=== PATIENT | male | born 1975 | race Caucasian/White ===

== ENCOUNTER 2018-01-20 03:07 | Outpatient (CLI) | payer BC, SELFPAY ==
[2018-01-20 08:36] LABS: Hemoglobin A1C 5.9 % (4.5-6.2)
[2018-01-20 09:34] LABS: Anion Gap 9.6 mmol/L (3-11); BUN 19 mg/dL (7-18); CO2 25.4 mmol/L (21.0-32.0); CREATININE 1.07 mg/dL (0.70-1.30); Calcium 9.1 mg/dL (8.5-10.1); Chloride 104 mmol/L (98-107); Cholesterol 209 mg/dL (50-200); Glucose 105 mg/dL (70-100); HDL Cholesterol 36 mg/dL (40-60); LDL CHOLESTEROL 127 mg/dL (<100); Potassium 4.5 mmol/L (3.5-5.1); Sodium 139 mmol/L (136-145); Triglyceride 324 mg/dL (30-150)
[2018-01-20 09:37] LABS: COMMENT (LAB VIEW ONLY) 213.78 mg/dL; Microalb ug/mg Crea 4.2 ug/mg Cr
== END 2018-01-20 03:08 ==
PROVIDERS: PCP Nurse Practitioner Family; Visit Provider Nurse Practitioner Family
DX: I10 Essential (primary) hypertension (principal); E78.5 Hyperlipidemia, unspecified; R73.01 Impaired fasting glucose
CPT/HCPCS: 36415; 80048; 80061; 83721; 82043; 82570; 83036

== ENCOUNTER 2019-02-15 14:11 | Outpatient (CLI) | payer BC, SELFPAY ==
[2019-02-15 14:55] LABS: Abs Immature Grans 0.04 k/cumm (0.0-0.09); Absolute Basophil Count 0.03 k/cumm (0.0-0.2); Absolute Eosinophil Count 0.24 k/cumm (0.0-0.7); Absolute Lymphocyte Count 1.73 k/cumm (1.2-3.4); Absolute Monocyte Count 0.83 k/cumm (0.11-0.7); Absolute Neutrophil Count 5.45 k/cumm (1.2-6.7); Basophils % 0.4; Eosinophils % 2.9; HCT 44.7 % (40.0-50.0); HGB 15.1 g/dL (13.5-17.5); Immature Grans % 0.5; Lymphocytes % 20.8; Mean Corp. HGB Concentration 33.8 g/dL (32.0-36.0); Mean Corpuscular Hemoglobin 27.6 pg (27.0-33.0); Mean Corpuscular Volume 81.7 fL (80-95); Mean Platelet Volume 9.4 fL (8.0-11.0); Neutrophils % 65.4; Platelet Count 366 x1000/uL (130-400); RBC 5.47 m/cumm (4.50-6.00); RBC Distribution Width 12.7 % (11.8-14.1); White Blood Cell Count 8.32 k/cumm (4.4-10.8)
[2019-02-15 15:27] LABS: ALT 64 U/L (16-63); AST 31 U/L (15-37); Albumin 4.1 g/dL (3.4-5.0); Alkaline Phosphatase 69 U/L (46-116); Anion Gap 11.1 mmol/L (3-11); BUN 14 mg/dL (7-18); Bilirubin, Total 0.5 mg/dL (0.2-1.0); CO2 25.9 mmol/L (21.0-32.0); CREATININE 1.02 mg/dL (0.70-1.30); Calcium 9.2 mg/dL (8.5-10.1); Chloride 104 mmol/L (98-107); Glucose 102 mg/dL (70-100); Lipase 140 U/L (73-393); Potassium 4.1 mmol/L (3.5-5.1); Sodium 141 mmol/L (136-145); Total Protein 7.3 g/dL (6.4-8.2)
== END 2019-02-15 14:31 ==
PROVIDERS: PCP Nurse Practitioner Family; Visit Provider Nurse Practitioner Family
DX: K59.00 Constipation, unspecified (principal); K92.1 Melena; R10.32 Left lower quadrant pain
CPT/HCPCS: 36415; 80053; 83690; 85025

== ENCOUNTER 2019-02-26 00:48 | Outpatient (CLI) | payer BC, SELFPAY ==
--- NOTE | 2019-02-26 07:26 | DI.CT_ITS ---
EXAM: CT ABDOMEN PELVIS W CLINICAL HISTORY: LLQ ABD PAIN, MELENA,CONSTIPATION,R10.32,K59.0. TECHNIQUE: Imaging Protocol: Axial computed tomography images with coronal and sagittal reformatted images were created and reviewed CONTRAST MATERIAL: Intravenous: Omnipaque 350 Contrast volume:100 mL contrast route:IV - Oral: Yes COMPARISON: No exams were available for comparison FINDINGS: ABDOMEN: Lung Bases: Normal where visualized. Liver: There is diffuse decreased attenuation of the liver. This is most suggestive of hepatic steat osis. No masses are identified. Gallbladder and biliary tract: No radiodense calculus or dilation. Pancreas: Normal density, no abnormal calcifications or inflammatory process. Spleen: Normal. Kidneys: Normal size, contour and axis. No radiodense stones or obstructive uropathy. There is a 1.1 cm simple cyst in the midpole of the right kidney. Adrenal glands: No masses seen. Abdominal Aorta: Abdominal portion non-dilated. Neck adenopathy is present. PELVIS: Bladder: Symmetric distention, no gross wall thickening. The reproductive organs are unremarkable as visualized. Bowel: No obstruction or bowel wall thickening. A fluid-filled appendix is seen posterior to the cecu m. It measures 1 cm in diameter. No Augustina appendiceal inflammatory changes are present. Peritoneal cavity: No ascites, collection or mesenteric inflammatory response. Bones: Mild degenerative changes are seen in the thoracic and lumbar spine. Impression: No findings of acute diverticulitis. Hepatic steatosis. Mildly distended but otherwise unremarkable appendix. No periappendiceal inflammatory changes presen t. Please correlate clinically. DATA REPOSITORY: All CT scans at this facility are submitted to the National Radiology Data Registry (NRDR) Dose Index Registry (DIR) with the [employer] (ACR). RADIATION OPTIMIZATION: All CT scans at this facility use at least one of these dose optimization te chniques: automated exposure control; mA and/or kV adjustment per patient size (includes targeted exa ms where dose is matched to clinical indication); or iterative reconstruction.
[2019-02-26] MEDS: Omnipaque 350 MG/ML 50 ML BTL IJ (08:02)
[2019-02-26] MEDS: Omnipaque 350 MG/ML 100 ML BTL IJ (09:10)
[2019-02-26] MEDS: Normal Saline Flush 10 ML SYR IVP (09:11)
[2019-02-26] MEDS: Breeza Beverage 473 ML BTL PO (09:11)
== END 2019-02-26 01:08 ==
PROVIDERS: PCP Nurse Practitioner Family; Visit Provider Nurse Practitioner Family
DX: R10.32 Left lower quadrant pain (principal); K92.1 Melena; K59.00 Constipation, unspecified; K76.0 Fatty (change of) liver, not elsewhere classified; K38.8 Other specified diseases of appendix
CPT/HCPCS: 74177; J3490; Q9967

== ENCOUNTER 2019-03-20 09:47 | Day surgery (SDC) | payer BC, SELFPAY ==
[2019-03-20 10:13] VITALS: BP 139/90; PULSE 78; RESP 18; TEMP 36.6; O2SAT 95
[2019-03-20 10:20] VITALS: BP 139/90; PULSE 78; RESP 18; TEMP 36.6; O2SAT 95
[2019-03-20] MEDS: Lactated Ringers 1,000 ML 80 ML IV (10:55)
--- NOTE | 2019-03-20 12:05 | W.PM.DSUDISC ---
Discharge Plan Disposition Patient Disposition: HOME Condition: Good Discharge Details Reason For Visit: Colonoscopy Attending Provider: Laura Lujan Primary Care Provider: Lucero Ugalde Home Meds and New Rx's Prescriptions: Continued lisinopril 10 mg tablet 10 mg PO DAILY Qty: 90 RF: 3 lovastatin 20 mg tablet 20 mg PO DAILY Qty: 90 RF: 3 aspirin [Aspir-81] 81 MG tablet,delayed release (DR/EC) 81 mg PO DAILY Qty: 1 RF: 0 multivitamin with minerals 1 EACH tablet 1 ea PO DAILY Qty: 1 RF: 0 Discontinued polyethylene glycol 3350 17 gram/dose powder 238 g PO ONCE Qty: 238 RF: 0 bisacodyl 5 mg tablet,delayed release (DR/EC) 5 mg PO ONCE Qty: 4 RF: 0 Discharge Instructions Additional Instructions: Findings: The colon was normal. Internal hemorrhoids are present and are the likely source of bleeding. Follow up: Plan for routine screening colonoscopy in 10 years or sooner if symptoms occur. Please call if you develop: fevers >101.5 Nausea or Vomiting Abdominal pain that is not transient DAY SURGERY UNIT POST COLONOSCOPY INSTRUCTIONS 1. Because there will be medication in your system for the next 24 hours, you may feel a little sleepy. Your coordination will be affected. Therefore: a. Do not drive or operate dangerous equipment for 24 hours. b. Do not drink alcohol beverages for 24 hours (not even beer). c. Plan to go home and rest for the day. 2. Generally there are no restrictions on your activity after a day or so has gone by, but you may feel a bit fatigued for a few days. 3 After you arrive home you may have a light meal and return to a normal diet as you can tolerate it without feeling sick to your stomach. 4. After surgery, you may feel pain or discomfort. This should be only transient, but if it persists please contact your doctor. 5. If there are any questions regarding the findings of your procedure, please feel free to contact your doctor. 6. If you are unable to contact your doctor with a problem, contact the hospital at [phone]. 7. Continue all your regular medications unless directed otherwise. I understand the above instructions and have no questions. Signature of Patient or Responsible Adult Escort Date/Time Name of Responsible Adult Escort Signature of Nurse Date/Time Activity:: Activity as Tolerated Diet:: As Tolerated Discharge Orders Discharge Orders: Discharge Order (Routine); Ordered 03/20/19 Ordered By: Laura Lujan DS: Diagnosis Discharge Diagnosis (1) Normal colonoscopy: Status: Acute
[2019-03-20 12:35] VITALS: BP 110/60; PULSE 80; RESP 18; TEMP 36.3; O2SAT 94
--- NOTE | 2019-03-20 13:16 | COLE_ITS ---
DATE OF PROCEDURE: March 20, 2019 PREOPERATIVE DIAGNOSIS: Rectal bleeding. POSTOPERATIVE DIAGNOSIS: Internal hemorrhoids PROCEDURE: Colonoscopy. SURGEON: Laura Lujan M.D. ANESTHESIA: General. INDICATIONS: This is a 43-year-old man who reports bright red rectal bleeding about four times a yea r. He has not had a prior colonoscopy. He has no family history of colon cancer. PROCEDURE: He was placed in the left Bains position. Propofol was titrated to sedation. Digital rec eloy examination revealed no abnormalities. The scope was advanced to the cecum without difficulty. His prep was excellent. The ileocecal valve and appendiceal orifice were clearly identified. The sc ope was slowly withdrawn with no abnormalities seen within the ascending, transverse, descending, sig moid colon or rectum, including on retroflex view. He was noted to have prominent internal hemorrhoi ds with some changes associated with prolapse. He tolerated the procedure well and was stable to rec overy. He will need a follow-up screening again in ten years or sooner if symptoms indicate. cc: Lucero Ugalde N.P.
== END 2019-03-20 13:12 | disposition home or self-care (01) ==
PROVIDERS: PCP Nurse Practitioner Family; Visit Provider Surgery
PROC: 0DJD8ZZ Inspection of Lower Intestinal Tract, Via Natural or Artificial Opening Endoscopic (ICD-10-PCS; CPT 45378; principal; 2019-03-20 11:15)
DX: K62.5 Hemorrhage of anus and rectum (principal); K64.0 First degree hemorrhoids; I10 Essential (primary) hypertension; G47.33 Obstructive sleep apnea (adult) (pediatric)
CPT/HCPCS: 45378

== ENCOUNTER 2019-04-09 09:24 | Outpatient (CLI) | payer BC, SELFPAY ==
[2019-04-09 11:17] LABS: Calculated LDL 121 mg/dL; Cholesterol 205 mg/dL (50-200); HDL Cholesterol 37 mg/dL (40-60); Triglyceride 239 mg/dL (30-150)
== END 2019-04-09 09:44 ==
PROVIDERS: PCP Nurse Practitioner Family; Visit Provider Nurse Practitioner Family
DX: E78.5 Hyperlipidemia, unspecified (principal)
CPT/HCPCS: 36415; 80061

== ENCOUNTER 2021-04-10 09:33 | Outpatient (CLI) | payer BC, SELFPAY ==
[2021-04-10 10:38] LABS: Hemoglobin A1C 6.4 % (<5.7)
[2021-04-10 11:41] LABS: BUN 14 mg/dL (7-18); Calcium 9.2 mg/dL (8.5-10.1); Calculated LDL 115 mg/dL (<100); Cholesterol 208 mg/dL (<200); Glucose 113 mg/dL (74-106); HDL Cholesterol 36 mg/dL (40-60); Total Protein 7.3 g/dL (6.4-8.2); Triglyceride 288 mg/dL (<150)
[2021-04-10 11:42] LABS: ALT 67 U/L (16-63); AST 29 U/L (15-37); Albumin 4.1 g/dL (3.4-5.0); Alkaline Phosphatase 76 U/L (46-116); Anion Gap 7.1 mmol/L (3-11); Bilirubin, Total 0.5 mg/dL (0.2-1.0); CO2 29.9 mmol/L (21.0-32.0); Chloride 105 mmol/L (98-107); Potassium 4.6 mmol/L (3.5-5.1); Sodium 142 mmol/L (136-145)
[2021-04-13 10:03] LABS: Hepatitis C Ab w Rflx HCV PCR Negative (Negative)
[2021-04-13 10:57] LABS: HIV-1/2 Ag & Ab Screen Negative (Negative)
== END 2021-04-10 09:34 | disposition home or self-care (01) ==
LOC: LBO 09:35
PROVIDERS: PCP Nurse Practitioner Family; Visit Provider Nurse Practitioner Family
DX: I10 Essential (primary) hypertension (principal); R73.01 Impaired fasting glucose; E78.5 Hyperlipidemia, unspecified; Z11.4 Encounter for screening for human immunodeficiency virus [HIV]; Z11.59 Encounter for screening for other viral diseases
CPT/HCPCS: 36415; 80053; 80061; 86803; 87389; 83036

== ENCOUNTER 2021-09-30 01:24 | Outpatient (CLI) | payer BC, SELFPAY ==
[2021-09-30 13:38] LABS: Ferritin 440 ng/mL (26-388)
[2021-09-30 13:44] LABS: Iron 56 ug/dL (65-175); Total Iron Binding Capacity 311 ug/dL (250-450); Transferrin Sat 18 % (20-55)
[2021-10-01 10:02] LABS: HBs Antibody, Quant <3.1 mIU/mL (See Note); Hepatitis B Surface Ab Negative (See Note)
[2021-10-01 10:17] LABS: Hepatitis B Surface Ag Negative (Negative)
[2021-10-01 11:04] LABS: Hep A Total Ab w Rflx IgM Negative (Negative); Hep B Core Antibody Negative (Negative)
[2021-10-01 11:11] LABS: Hepatitis C Ab w Rflx HCV PCR Negative (Negative)
== END 2021-09-30 01:25 | disposition home or self-care (01) ==
LOC: LBO 01:24
PROVIDERS: PCP Nurse Practitioner Family; Visit Provider Nurse Practitioner Family
DX: R79.89 Other specified abnormal findings of blood chemistry (principal); I10 Essential (primary) hypertension; R73.01 Impaired fasting glucose; E78.5 Hyperlipidemia, unspecified; Z11.59 Encounter for screening for other viral diseases
CPT/HCPCS: 36415; 86704; 86706; 86709; 86803; 87340; 82728; 83540; 83550

== ENCOUNTER 2022-02-19 00:48 | Outpatient (CLI) | payer BC, SELFPAY ==
[2022-02-19 08:56] LABS: Abs Immature Grans 0.08 10^3/uL (0.0-0.06); Absolute Basophil Count 0.04 10^3/uL (0.0-0.2); Absolute Eosinophil Count 0.39 10^3/uL (0.0-0.7); Absolute Lymphocyte Count 1.44 10^3/uL (1.2-3.4); Absolute Neutrophil Count 4.64 10^3/uL (1.2-6.7); Basophils % 0.5; Eosinophils % 5.3; HCT 47.1 % (40.0-50.0); HGB 15.4 g/dL (13.5-17.5); Immature Grans % 1.1; Lymphocytes % 19.5; MCH 27.1 pg (27.0-33.0); MCHC 32.7 % (32.0-36.0); MCV 83 fL (80-95); Monocytes % 10.8; Neutrophils % 62.8; Platelet Count 321 10^3/uL (130-400); RBC 5.68 10^6/uL (4.36-5.78); RDW-SD 36.3 fL; WBC 7.39 10^3/uL (4.4-10.8)
== END 2022-02-19 00:49 | disposition home or self-care (01) ==
LOC: LBO 00:48
PROVIDERS: Nurse Practitioner; PCP Nurse Practitioner Family; Visit Provider Nurse Practitioner Family
DX: K76.0 Fatty (change of) liver, not elsewhere classified (principal); R79.89 Other specified abnormal findings of blood chemistry
CPT/HCPCS: 36415; 85025

== ENCOUNTER 2022-04-12 04:07 | Outpatient (CLI) | payer BC, SELFPAY ==
[2022-04-12 10:07] LABS: ALT 61 U/L (16-63); AST 21 U/L (15-37); Albumin 4.1 g/dL (3.4-5.0); Alkaline Phosphatase 86 U/L (46-116); Anion Gap 5.2 mmol/L (3-11); BUN 13 mg/dL (7-18); Bilirubin, Total 0.4 mg/dL (0.2-1.0); CO2 30.8 mmol/L (21.0-32.0); Calcium 9.6 mg/dL (8.5-10.1); Calculated LDL 124 mg/dL (<100); Chloride 103 mmol/L (98-107); Cholesterol 217 mg/dL (<200); Estimated GFR 93.42 (mL/min/1.73m2); Glucose 116 mg/dL (74-106); HDL Cholesterol 41 mg/dL (40-60); Potassium 4.5 mmol/L (3.5-5.1); Sodium 139 mmol/L (136-145); Total Protein 7.8 g/dL (6.4-8.2); Triglyceride 260 mg/dL (<150)
== END 2022-04-12 04:08 | disposition home or self-care (01) ==
LOC: LBO 04:07
PROVIDERS: Absent Provider Nurse Practitioner Family; PCP Nurse Practitioner Family; Referring Provider Nurse Practitioner Family; Visit Provider Nurse Practitioner Family
DX: I10 Essential (primary) hypertension (principal); K76.0 Fatty (change of) liver, not elsewhere classified; E78.5 Hyperlipidemia, unspecified
CPT/HCPCS: 36415; 80053; 80061

== ENCOUNTER 2022-08-12 13:51 | Emergency (ER) | payer BC, SELFPAY ==
--- NOTE | 2022-08-12 13:45 | RT.EKG_ITS ---
APPROVED REPORT Exam: Resting ECG Reason for Exam: excxessive sweating, nausea Patient Location: E HR:87 bpm ECG Measurements Heart Rate 87 AXIS ID 164 P 15 QRSd 103 QRS 53 QT 393 T 29 QTc 472 Conclusion Sinus rhythm...normal P axis, V-rate 60- 99
[2022-08-12 13:52] VITALS: BP 161/98; PULSE 96; RESP 18; TEMP 37.2; O2SAT 96
--- NOTE | 2022-08-12 14:23 | W.ED.GENAD ---
Discharge Plan Disposition Patient Disposition: Home Condition: Improving Discharge Details Clinical Impression: Nausea Primary Care Provider: Lucero Ugalde ED Provider: Ryan Rosenbaum Home Meds and New Rx's Prescriptions: Continued aspirin [Aspir-81] 81 MG tablet,delayed release (DR/EC) 81 mg PO DAILY Qty: 1 multivitamin with minerals 1 EACH tablet 1 ea PO DAILY Qty: 1 atorvastatin 20 mg tablet 20 mg PO DAILY Qty: 90 3RF lisinopril 10 mg tablet 10 mg PO DAILY Qty: 90 3RF Discharge Instructions Instructions: Acute Nausea and Vomiting (ED) Additional Instructions: Home to rest today. Your evaluation in the emergency department included cardiac troponin, screening laboratories, and EKG. These were very reassuring. Return if you develop new chest pain, difficulty breathing, or any other acute concerns. Resume normal routine and activities. Continue your routine medications. Medical Decision Making 46-year-old male with a history of obesity, hyperlipidemia, hypertension and family history of coronary disease. 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 It was transient and resolved on its own. He discussed with his family members who mentioned that this may be part of a small heart attack for which the patient now seeks evaluation. He arrives to the ER in no acute distress. Patient placed on a classroom monitor, screening labs and EKG obtained. This may be a simple viral illness, must exclude underlying acute coronary syndrome. Patient's EKG is unremarkable. His laboratories reveal a white blood cell count of 8, hematocrit 47, platelets 345. Chemistries within normal limits. Magnesium is 2.3, LFTs are unremarkable, and troponin is negative. Patient reassured. He understands to return for reevaluation should any new symptoms occur. He is stable and appropriate for discharge to home HPI General Mode of arrival: ambulatory. Date/Time Provider Initiated Documentation: 08/12/22 14:04. Limitations to Documentation: no limitations. Information obtained by: patient. History of Present Illness 46 year old M presents to the emergency department with the chief complaint of Nauseated yesterday, feels well today, worried about small heart attack, described as mild, and is localized to the abdomen. Patient reports no radiation. Patient started experiencing this minute(s) and it has been now resolved. No relieving factors improve symptom(s), No exacerbating factors reported . Patient notes denies fever/chills and loss of appetite. Patient did receive the following treatments prior to arrival, none Related Data Home Medications Medication Instructions Recorded Confirmed aspirin 81 mg tablet,delayed 81 mg PO DAILY ##1 09/03/14 08/12/22 release (Aspir-) multivitamin with minerals 1 ea PO DAILY ##1 09/03/14 08/12/22 atorvastatin 20 mg tablet 20 mg PO DAILY #90 tab-caps 04/15/22 08/12/22 lisinopril 10 mg tablet 10 mg PO DAILY #90 tab-caps 06/04/22 08/12/22 Previous Rx's Medication Instructions Recorded atorvastatin 20 mg tablet 20 mg PO DAILY #90 tab-caps 04/15/22 lisinopril 10 mg tablet 10 mg PO DAILY #90 tab-caps 06/04/22 Allergies Allergy/AdvReac Type Severity Reaction Status Date / Time simvastatin AdvReac Unknown headaches Verified 08/12/22 14:23 General Stated Complaint: Nausea/Vomit/Diar NAFISA: 3 Review of Systems Narrative: 6 systems reviewed and otherwise negative PFSH All Active Problems (Updated 08/12/22 @ 15:07 by Ryan Rosenbaum MD) Nausea (Acute) Hepatic steatosis (Chronic) 03/2022 labs: FIB4 score = 0.39 (cirrhosis less likely) Obesity, morbid, BMI 40.0-49.9 (Acute) ASHER (obstructive sleep apnea) (Chronic 01/09/14) CPAP IFG (impaired fasting glucose) (Chronic 05/12/16) Hyperlipidemia (Chronic 04/17/15) 03/2019 labs: LDL not at goal consecutive years --> increased statin from low intensity to moderate intensity; 04/20: increased from atorva 10 to 20 Essential hypertension (Chronic 01/20/18) Right bundle branch block (RBBB) (Chronic 09/03/14) Chronic right shoulder pain (Chronic) Medical History Hemorrhoids, internal 03/20/2019 colonoscopy (rectal bleeding) Surgical History Repair of umbilical hernia (02/15/12) C-QUR patch Vasectomy (02/15/12) Family History Maternal Uncle Prostate cancer Maternal Grandmother Colon cancer Social History Smoking/Tobacco Use Status: Former Tobacco Use Quit Date: 05/30/99 Smoking risk assessment performed?: Yes Alcohol Intake: current Alcohol Intake frequency: a few times a month Alcohol type: beer Drug use: Never Substance use type: does not use Adopted: No Caregiver/Support person: No Foster care: No Household members: family Housing: house Number of Children: 3 number of grandchildren: 1 Communication Needs: None Education Level: high school Do you need help understanding health information?: Never 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 [employer] Pets and animals: No Sexually active: Yes Do you think of yourself as: straight/heterosexual Current gender identity: male What is your relationship status?: How often do you talk on the phone with friends or family?: three or more times per week How often do you get together with friends or relatives?: three or more times per week How often do you attend protestant or temple services?: decline to answer Do you belong to any clubs or organized social groups?: yes Panel score (0-1 are the most socially isolated patients): 2 What type of physical activity do you participate in: walking Duration: < 15 minutes/day Frequency: 1-2 times per week Hsagufta/Voodoo: Adventism Seatbelt use: always Helmet use: Yes Drive intox or ride w/intox 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 Pleasant, well groomed, interactive. HEAD: Normocephalic, atraumatic ENT: Mucous membranes moist, oropharynx unremarkable, External ear exam unremarkable EYES: PERRL, EOMI NECK: Full ROM, no REBECA, no menigismus CHEST/RESP: Nontender, clear to auscultation bilateral, no wheeze/rhonchi/rales CARDIOVASCULAR: RRR, no murmur, rub maddie. 2+ Rad pulse bilateral ABDOMEN: Soft, nontender, no mass. +Bowel sounds EXT: Full ROM, no edema, no rash Neuro: Grossly normal neurologic exam, conversant, interactive. Psych: Speech fluent, thoughts congruent, affect normal Course Vital Signs Vital signs: Vital Signs Temperature 37.2 C 08/12/22 13:52 Pulse 96 H 08/12/22 13:52 Respiratory Rate 18 08/12/22 13:52 Blood Pressure 161/98 H 08/12/22 13:52 Pulse Oximetry 96 08/12/22 13:52 Temperature 37.2 C 08/12/22 13:52 Temperature Source Oral 08/12/22 13:52 Pulse 96 H 08/12/22 13:52 Respiratory Rate 18 08/12/22 13:52 Blood Pressure 161/98 H 08/12/22 13:52 Blood Pressure Position Sitting 08/12/22 13:52 Pulse Oximetry 96 08/12/22 13:52 Oxygen Delivery Method Room Air 08/12/22 13:52 Oxygen Flow Rate 0 08/12/22 13:52 Pain Level 0 08/12/22 13:52
[2022-08-12 14:38] LABS: Abs Immature Grans 0.05 10^3/uL (0.0-0.06); Absolute Basophil Count 0.04 10^3/uL (0.0-0.2); Absolute Eosinophil Count 0.38 10^3/uL (0.0-0.7); Absolute Lymphocyte Count 1.48 10^3/uL (1.2-3.4); Absolute Monocyte Count 0.84 10^3/uL (0.1-0.8); Absolute Neutrophil Count 5.78 10^3/uL (1.2-6.7); Basophils % 0.5; Eosinophils % 4.4; HCT 47.3 % (40.0-50.0); HGB 15.7 g/dL (13.5-17.5); Immature Grans % 0.6; Lymphocytes % 17.3; MCHC 33.2 % (32.0-36.0); MCV 85 fL (80-95); MPV 9.1 fL (8.0-11.0); Monocytes % 9.8; Neutrophils % 67.4; Platelet Count 345 10^3/uL (130-400); RDW 12.8 % (11.8-14.1); RDW-SD 38.5 fL; WBC 8.57 10^3/uL (4.4-10.8)
[2022-08-12 15:03] LABS: ALT 60 U/L (16-63); AST 25 U/L (15-37); Albumin 4.1 g/dL (3.4-5.0); Alkaline Phosphatase 97 U/L (46-116); Anion Gap 6.3 mmol/L (3-11); BUN 17 mg/dL (7-18); Bilirubin, Total 0.3 mg/dL (0.2-1.0); CO2 29.7 mmol/L (21.0-32.0); CREATININE 1.1 mg/dL (0.70-1.30); Calcium 9.5 mg/dL (8.5-10.1); Chloride 102 mmol/L (98-107); Estimated GFR 83.32 (mL/min/1.73m2); Glucose 162 mg/dL (74-106); Magnesium 2.3 mg/dL (1.8-2.4); Sodium 138 mmol/L (136-145); Total Protein 7.8 g/dL (6.4-8.2); Troponin I < 50 ng/L (<or=60)
== END 2022-08-12 15:52 | disposition home or self-care (01) ==
PROVIDERS: Emergency Provider Emergency Medicine; PCP Nurse Practitioner Family
DX: R11.2 Nausea with vomiting, unspecified (principal); I10 Essential (primary) hypertension
CPT/HCPCS: 80053; 93005; 99283; 83735; 84484; 85025; 93010

== ENCOUNTER 2023-03-25 01:53 | Outpatient (CLI) | payer BC, SELFPAY ==
[2023-03-25 07:23] LABS: Abs Immature Grans 0.06 10^3/uL (0.0-0.06); Absolute Basophil Count 0.04 10^3/uL (0.0-0.2); Absolute Eosinophil Count 0.31 10^3/uL (0.0-0.7); Absolute Lymphocyte Count 1.55 10^3/uL (1.2-3.4); Absolute Monocyte Count 0.55 10^3/uL (0.1-0.8); Absolute Neutrophil Count 3.85 10^3/uL (1.2-6.7); Basophils % 0.6; Eosinophils % 4.9; HCT 46.2 % (40.0-50.0); HGB 15.3 g/dL (13.5-17.5); Immature Grans % 0.9; Lymphocytes % 24.4; MCHC 33.1 % (32.0-36.0); MCV 82 fL (80-95); MPV 9.1 fL (8.0-11.0); Monocytes % 8.6; Neutrophils % 60.6; Platelet Count 315 10^3/uL (130-400); RBC 5.66 10^6/uL (4.36-5.78); RDW 12.1 % (11.8-14.1); WBC 6.36 10^3/uL (4.4-10.8)
[2023-03-25 07:35] LABS: Hemoglobin A1C 6.6 % (<5.7)
[2023-03-25 08:40] LABS: ALT 74 U/L (16-63); AST 26 U/L (15-37); Alkaline Phosphatase 86 U/L (46-116); BUN 16 mg/dL (7-18); Bilirubin, Total 0.5 mg/dL (0.2-1.0); Calcium 9.7 mg/dL (8.5-10.1); Calculated LDL 89 mg/dL (<100); Chloride 104 mmol/L (98-107); Cholesterol 164 mg/dL (<200); Estimated GFR 92.84 (mL/min/1.73m2); Glucose 136 mg/dL (74-106); HDL Cholesterol 35 mg/dL (40-60); Potassium 4.4 mmol/L (3.5-5.1); Sodium 141 mmol/L (136-145); Total Protein 7.5 g/dL (6.4-8.2); Triglyceride 201 mg/dL (<150)
== END 2023-03-25 01:54 | disposition home or self-care (01) ==
LOC: LBO 01:53
PROVIDERS: PCP Nurse Practitioner Family; Visit Provider Nurse Practitioner Family
DX: K76.0 Fatty (change of) liver, not elsewhere classified (principal); E78.5 Hyperlipidemia, unspecified; R73.01 Impaired fasting glucose
CPT/HCPCS: 36415; 80053; 80061; 83036; 85025